=== PATIENT | female | born 1935 | race Caucasian/White ===

== ENCOUNTER 2016-12-22 12:06 | Emergency (ER) | payer MEDICARE ==
[2016-12-22] MEDS ORDERED: NORCO 5/325 MG PO ONE (12:26)
[2016-12-22] MEDS ORDERED: ZOFRAN ODT 4 MG PO ONE (12:26)
[2016-12-22] MEDS ORDERED: Zofran 4 MG/2 ML VIAL IV ONE (12:28)
[2016-12-22] MEDS ORDERED: SUBLIMAZE 100 MCG/2 ML IV ONE ×2 (12:28→13:38)
[2016-12-22] MEDS ORDERED: Zofran 4 MG/2 ML VIAL ONE (12:31)
[2016-12-22] MEDS ORDERED: SUBLIMAZE 100 MCG/2 ML ONE ×2 (12:32→13:52)
--- NOTE | 2016-12-22 12:33 | ERPHSYRPT ---
- History of Present Illness Time Seen by Provider: 12/22/16 12:13 Source: patient, EMS Patient Subjective Stated Complaint: PT REPORTS FALLING IN HOLE IN YARD-REPORTS PAIN TO RIGHT UPPER ARM-INCREASES WITH MOVEMENT-DENIES NUMBNESS OR TINLGING Triage Nursing Assessment: RADIAL PULSE REGULAR ET STRONG-CAP REFILL 3 SEC-RESP NONLAOBRED Physician History: CC: fall Hx: 81 y/o patient of Dr Martínez fell in her yard after walking around planning the spring. She got her foot caught causing the fall. She has pain in the right upper arm. No LOC. No hx of blood thinners. No neck or back pain. No N/T/W. No chest or abd pain. She declined pain meds in EMS. Was placed in sling and swathe. Pain moderate but worse with movement. Occurred: just prior to arrival Reason for Fall: tripped Loss of Consciousness: no loss of consciousness Allergies/Adverse Reactions: enoxaparin sodium [From Lovenox] Allergy (Severe, Verified 12/22/16 12:07) Hives swelling and hives banana Allergy (Intermediate, Verified 12/22/16 12:07) Nausea atenolol [From Tenormin] Allergy (Verified 12/22/16 12:07) Home Medications: Allopurinol 100 mg PO HS 02/15/15 [History] Aspirin 81 mg PO UD 02/15/15 [History] Docusate Sodium 100 mg PO DAILY 02/15/15 [History] Ezetimibe 10 mg [Zetia 10 MG] 10 mg PO EVENING MEAL 02/15/15 [History] Hydrochlorothiazide 12.5 mg PO DAILY 02/15/15 [History] Lisinopril 20 mg PO DAILY 02/15/15 [History] Metformin HCl 500 mg [Glucophage 500 MG] 500 mg PO BID 02/15/15 [History] Metoprolol Tartrate 25 mg PO BID 02/15/15 [History] Multivitamin [Multivitamins] 1 tab PO DAILY 02/15/15 [History] Pravastatin Sodium [Pravachol] 80 mg PO HS 02/15/15 [History] Phoenix-3 Fatty Acids/Fish Oil [Phoenix-3 1,000 mg Softgel] 1 each PO QID 07/25/16 [ History] Hx Tetanus, Diphtheria Vaccination/Date Given: No Hx Influenza Vaccination/Date Given: No Hx Pneumococcal Vaccination/Date Given: Yes Immunizations Up to Date: Yes - Review of Systems Constitutional: No Symptoms Eyes: No Vision Changes Ears, Nose, & Throat: No Symptoms Respiratory: No Dyspnea Cardiac: No Chest Pain Abdominal/Gastrointestinal: No Abdominal Pain, No Nausea, No Vomiting Musculoskeletal: Fall, Joint Pain (right upper arm), No Back Pain, No Neck Pain Skin: No Rash Neurological: No Focal Weakness, No Headache, No Parasthesia All Other Systems: Reviewed and Negative - Past Medical History Pertinent Past Medical History: Yes Neurological History: Other ENT History: No Pertinent History Cardiac History: High Cholesterol, Hypertension Respiratory History: No Pertinent History Endocrine Medical History: Diabetes Type II Musculoskeletal History: Osteoarthritis GI Medical History: Hemorrhoids History: No Pertinent History Psycho-Social History: No Pertinent History Female Reproductive Disorders: No Pertinent History Other Medical History: [place] Palsy 1980 - Past Surgical History Past Surgical History: Yes Neuro Surgical History: No Pertinent History Cardiac: Cardiac Catheterization Respiratory: No Pertinent History Gastrointestinal: Other Genitourinary: No Pertinent History Musculoskeletal: Orthopedic Surgery Female Surgical History: No Pertinent History Other Surgical History: Bilateral Knee replacement. Arthritis in hands, and elbows - Social History Smoking Status: Never smoker Exposure to second hand smoke: No Drug Use: none Patient Lives Alone: No - Nursing Vital Signs Nursing Vital Signs: Initial Vital Signs Temperature 97.4 F Temperature Source Oral Pulse Rate 60 Respiratory Rate 20 Blood Pressure [Left Arm] 159/99 Pain Intensity 5 - Rodrigo Coma Score Best Eye Response (Rodrigo): (4) open spontaneously Best Verbal Response (Rodrigo): (5) oriented Best Motor Response ([place]): (6) obeys commands Rodrigo Total: 15 - Physical Exam General Appearance: alert Head Injury: no evidence of injury Eye Exam: PERRL/EOMI ENT Exam: airway nml Neck Exam: supple, No focal neuro deficit, No mid-line tenderness Respiratory/Chest Exam: normal breath sounds, No chest tenderness Cardiovascular Exam: regular rate/rhythm Gastrointestinal Exam: soft, No tenderness, No distention Back Exam: normal inspection, No vertebral tenderness Extremity Exam: normal inspection, tenderness (mid right humerus with crepitus suggesting fracture. No shoulder, elbow, wrist, or hand tenderness. ) Neurologic Exam: alert, oriented x 3, cooperative, mine inspector II-XII nml as tested, sensation nml, No motor deficits Skin Exam: warm, dry, No rash SpO2 Interpretation: normal SpO2: 95 Oxygen Delivery: Room Air - Course Nursing assessment & vital signs reviewed: Yes - Radiology Exams right humerus X-ray Interpretation: Teleradiologist Report (prox humerus fx comminuted) Ordered Tests: Active Orders 24 hr Category Date Time Status Cold Application STAT Care 12/22/16 12:25 Active IV Insertion STAT Care 12/22/16 12:28 Active NPO (ED) STAT Care 12/22/16 12:26 Active Sling Application STAT Care 12/22/16 12:25 Active HUMERUS Stat Exams 12/22/16 12:25 Completed Medication Summary Discontinued Medications Generic Name Dose Route Start Last Admin Trade Name Freq PRN Reason Stop Dose Admin Acetaminophen/Hydrocodone Bitart 1 tab 12/22/16 12:26 12/22/16 12:39 [place] 5/325 Mg PO 12/22/16 12:27 Not Given STAT ONE Fentanyl Citrate 25 mcg 12/22/16 12:28 12/22/16 12:35 Sublimaze 100 Mcg/2 Ml IV 12/22/16 12:29 25 mcg STAT ONE Administration Fentanyl Citrate Confirm 12/22/16 12:32 Sublimaze 100 Mcg/2 Ml Administered 12/22/16 12:33 Dose 100 mcg .ROUTE .STK-MED ONE Ondansetron HCl 4 mg 12/22/16 12:26 12/22/16 12:39 Zofran Odt 4 Mg PO 12/22/16 12:27 Not Given STAT ONE Ondansetron HCl 4 mg 12/22/16 12:28 12/22/16 12:35 Zofran 4 Mg/2 Ml Vial IV 12/22/16 12:29 4 mg STAT ONE Administration Ondansetron HCl Confirm 12/22/16 12:31 Zofran 4 Mg/2 Ml Vial Administered 12/22/16 12:32 Dose 4 mg .ROUTE .STK-MED ONE - Progress Progress Note: 12/22/16 13:26 Explained fx to pt and brother. She has seen Dr Abrams in the past and requests [facility]. Called. Appt made to see Dr Fuentes 9AM Sunday. Will release with sling and instr. Counseled pt/family regarding: diagnosis, need for follow-up, rad results - Departure Time of Disposition: 13:27 Departure Disposition: Home Clinical Impression: Fracture, humerus, head Condition: Stable Critical Care Time: No Referrals: MAKENZIE FUENETS [NON-STAFF PHY W/O PRIVILEGES] - Instructions: Prevent Falls, Shoulder Fracture Additional Instructions: Ice packs off and on. Stay with family. Use right arm sling. Rx norco for pain- try half tablet every 4-6 hours as needed. Rx zofran if needed for nausea. See Dr Fuentes at 9AM Sunday. Take xray disk with you. Prescriptions: Hydrocodone Bit/Acetaminophen [[place] 5-325 Tablet] 1 each PO Q6H PRN PRN #20 tablet PRN Reason: Pain Ondansetron [Zofran Odt] 4 mg PO Q6HPRN PRN #10 tab.rapdis PRN Reason: Nausea/Vomiting
[2016-12-22 13:15] VITALS: BP 159/99; PULSE 60
--- NOTE | 2016-12-22 13:17 | XRAY ---
Indication: Pain following fall. Comparison: None 2 views of the right humerus demonstrates osteopenia with acute displaced comminuted humeral head fracture. No other bony, articular, or soft tissue abnormalities.
[2016-12-22 13:31] VITALS: O2SAT 95
== END 2016-12-22 14:29 | disposition home or self-care (01) ==
LOC: ED 12:06
DX: S42.291A Other displaced fracture of upper end of right humerus, initial encounter for closed fracture (principal); W01.0XXA Fall on same level from slipping, tripping and stumbling without subsequent striking against object, initial encounter; M79.621 Pain in right upper arm
CPT/HCPCS: 36000; 73060; 96374; 96375; 99284; J2405; J3010

== ENCOUNTER 2019-05-14 13:29 | Day surgery (SDC) | payer MEDICARE ==
[2019-05-14] MEDS ORDERED: Xylocaine 1% Vial 30 ML PF IJ ONE (13:30)
[2019-05-14] MEDS ORDERED: Depo-Medrol 40 MG/ML IM ONE (13:30)
[2019-05-14] MEDS ORDERED: Sodium Chloride 0.9(Preservative Free) 10 ML IJ ONE (13:30)
--- NOTE | 2019-05-14 16:23 | XRAY ---
Indication: Lumbar SHONDA. Intraoperative fluoroscopy was provided for 14 seconds. 2 digital spot images submitted for interpretation demonstrates midline needle tip projecting just posterior to the lumbosacral junction interspace. Small amount of contrast injected for needle tip placement. Correlate with intraoperative findings/report.
--- NOTE | 2019-05-14 16:42 | XRAY ---
14 seconds fluoroscopy time in surgery for lumbar SHONDA.
== END 2019-05-14 15:40 | disposition home or self-care (01) ==
LOC: SDC-PAIN 13:29
PROVIDERS: ATTEND Psychiatry & Neurology Pain Medicine
DX: M54.16 Radiculopathy, lumbar region (principal); E11.9 Type 2 diabetes mellitus without complications; I10 Essential (primary) hypertension; Z79.899 Other long term (current) drug therapy
CPT/HCPCS: 72100; 77003; J1030; J2001

== ENCOUNTER 2019-07-02 14:23 | Day surgery (SDC) | payer MEDICARE ==
[2019-07-02] MEDS ORDERED: Marcaine 0.5% SDV 10 ML IJ ONE (14:24)
[2019-07-02] MEDS ORDERED: Depo-Medrol 40 MG/ML IM ONE (14:24)
[2019-07-02] MEDS ORDERED: Xylocaine 1% Vial 30 ML PF IJ ONE (14:24)
--- NOTE | 2019-07-02 16:03 | XRAY ---
Indication: Right hip injection. Intraoperative fluoroscopy was provided for 40 seconds. Single digital spot image submitted for interpretation demonstrates needle tip just lateral to the right femur neck. Small amount of contrast injected for needle tip placement. Correlate with intraoperative findings/report.
--- NOTE | 2019-07-02 16:08 | XRAY ---
40 seconds fluoroscopy time in surgery for right intra-articular hip injection.
== END 2019-07-02 15:20 | disposition home or self-care (01) ==
LOC: SDC-PAIN 14:23
PROVIDERS: ATTEND Psychiatry & Neurology Pain Medicine
DX: M16.11 Unilateral primary osteoarthritis, right hip (principal); E11.9 Type 2 diabetes mellitus without complications; I10 Essential (primary) hypertension; Z79.899 Other long term (current) drug therapy
CPT/HCPCS: 20610; 73501; 77002; 82962; J1030; J2001; Q9966

== ENCOUNTER 2020-09-22 14:08 | Day surgery (SDC) | payer MEDICARE ==
[2020-09-22] MEDS ORDERED: Depo-Medrol 40 MG/ML IM ONE (14:09)
[2020-09-22] MEDS ORDERED: BUPIVACAINE 0.5% VIAL IJ ONE (14:09)
[2020-09-22] MEDS ORDERED: Xylocaine 1% Vial 30 ML PF IJ ONE (14:09)
--- NOTE | 2020-09-22 18:22 | XRAY ---
59 seconds of fluoroscopy was used in surgery for a right intra-articular hip injection.
--- NOTE | 2020-09-22 18:30 | XRAY ---
Indication: Right hip injection. Intraoperative fluoroscopy was provided for 59 seconds. 2 digital spot images submitted for interpretation demonstrates needle tip projecting just lateral to the right femur head. Small amount of contrast injected for needle tip placement. Correlate with intraoperative findings/report.
== END 2020-09-22 17:40 | disposition home or self-care (01) ==
LOC: SDC-PAIN 14:08
PROVIDERS: ATTEND Psychiatry & Neurology Pain Medicine
DX: M16.11 Unilateral primary osteoarthritis, right hip (principal); E11.9 Type 2 diabetes mellitus without complications; I10 Essential (primary) hypertension; Z79.899 Other long term (current) drug therapy
CPT/HCPCS: 73501; 77002; 82947; J1030; J2001

== ENCOUNTER 2022-11-15 08:39 | Day surgery (SDC) | payer MEDICARE ==
[2022-11-15] MEDS ORDERED: BUPIVACAINE 0.5% VIAL IJ ONE (08:40)
[2022-11-15] MEDS ORDERED: LIDOCAINE HCL 1% 50 MG/5 ML VL PF IJ ONE ×2 (08:40)
[2022-11-15] MEDS ORDERED: Depo-Medrol 40 MG/ML IM ONE (08:40)
[2022-11-15] MEDS ORDERED: DIPRIVAN 200 MG/20 ML IV ONE (10:11)
--- NOTE | 2022-11-15 12:46 | XRAY ---
Indication: Right hip injection. Intraoperative fluoroscopy provided for 1 minute. Single digital spot image submitted for interpretation demonstrates needle tip lateral to the right femur neck. Small amount of contrast injected for needle tip placement. Correlate with intraoperative findings/report.
--- NOTE | 2022-11-15 12:58 | XRAY ---
One minute of fluoroscopy was used in surgery for a right intra-articular hip injection.
[2022-11-15] MEDS ORDERED: Lactated Ringers 1,000 ML IV ONE (13:53)
== END 2022-11-15 10:43 | disposition home or self-care (01) ==
LOC: SDC-PAIN 08:39
PROVIDERS: ATTEND Psychiatry & Neurology Pain Medicine
DX: M16.11 Unilateral primary osteoarthritis, right hip (principal); E11.9 Type 2 diabetes mellitus without complications; Z79.899 Other long term (current) drug therapy
CPT/HCPCS: 20610; 73501; 77002; 82947; J1030; J2001; J2704; Q9966

== ENCOUNTER 2023-11-07 07:01 | Day surgery (SDC) | payer MEDICARE ==
[2023-11-07] MEDS ORDERED: Decadron 4 MG INJ IV ONE (07:02)
[2023-11-07] MEDS ORDERED: XYLOCAINE-MPF 1% 5ML SDV IJ ONE (07:02)
--- NOTE | 2023-11-07 10:47 | XRAY ---
Indication: Right piriformis injection. Intraoperative fluoroscopy provided for 44 seconds. 2 digital spot image submitted for interpretation demonstrates posterior needle tip projecting over the expected right piriformis. Small amount of contrast injected for needle tip placement. Correlate with intraoperative findings/report.
--- NOTE | 2023-11-07 10:53 | XRAY ---
44 seconds of fluoroscopy was used in surgery for a right piriformis injection.
[2023-11-07] MEDS ORDERED: Lactated Ringers 1,000 ML IV ONE (11:50)
== END 2023-11-07 09:15 | disposition home or self-care (01) ==
LOC: SDC-PAIN 07:01
PROVIDERS: ATTEND Psychiatry & Neurology Pain Medicine
DX: M79.18 Myalgia, other site (principal); E11.9 Type 2 diabetes mellitus without complications
CPT/HCPCS: 20552; 72170; 77002; 82947; 93005; J1100; Q9966

== ENCOUNTER 2023-12-12 07:22 | Day surgery (SDC) | payer MEDICARE ==
[2023-12-12] MEDS ORDERED: Depo-Medrol 40 MG/ML IM ONE (07:23)
[2023-12-12] MEDS ORDERED: LIDOCAINE HCL 2% 100 MG/5 ML IJ ONE (07:23)
[2023-12-12] MEDS ORDERED: DIPRIVAN 200 MG/20 ML IV ONE ×2 (09:01→09:14)
--- NOTE | 2023-12-12 10:13 | XRAY ---
Indication: Bilateral L4-S1 MBB. Intraoperative fluoroscopy provided for 12 seconds. Single digital spot image submitted for interpretation demonstrates posterior needle tips projecting over the expected left and right L4-S1 nerve roots. Correlate with intraoperative findings/report.
--- NOTE | 2023-12-12 10:21 | XRAY ---
12 seconds of fluoroscopy was used in surgery for a bilateral L4-S1 MBB.
[2023-12-12] MEDS ORDERED: Lactated Ringers 1,000 ML IV ONE (11:40)
== END 2023-12-12 09:46 | disposition home or self-care (01) ==
LOC: SDC-PAIN 07:22
PROVIDERS: ATTEND Psychiatry & Neurology Pain Medicine
DX: M47.816 Spondylosis without myelopathy or radiculopathy, lumbar region (principal); E11.9 Type 2 diabetes mellitus without complications
CPT/HCPCS: 64493; 64494; 72020; 77002; 82947; J1010; J2704; J1030

== ENCOUNTER 2025-06-24 09:20 | Day surgery (SDC) | payer MEDICARE ==
[2025-06-24] MEDS ORDERED: Sodium Chloride 0.9(Preservative Free) 10 ML IJ ONE (09:21)
[2025-06-24] MEDS ORDERED: Lactated Ringers 1,000 ML IV ONE (09:30)
[2025-06-24] MEDS ORDERED: propofoL IV ONE (11:26)
--- NOTE | 2025-06-24 13:23 | XRAY ---
Indication: Right L4-S1 transforaminal SHONDA. Intraoperative fluoroscopy provided for 30 seconds. 5 digital spot image submitted for interpretation demonstrates posterior needle tips projecting over expected right L4 and L5 nerve roots. Small amount of contrast injected for needle tip placement. Correlate with intraoperative findings/report.
--- NOTE | 2025-06-24 13:54 | XRAY ---
30 seconds of fluoroscopy were used in surgery for a right L4-S1 transforaminal SHONDA.
== END 2025-06-24 12:00 | disposition home or self-care (01) ==
LOC: SDC-PAIN 09:20
PROVIDERS: ATTEND Psychiatry & Neurology Pain Medicine
DX: M54.16 Radiculopathy, lumbar region (principal); E11.9 Type 2 diabetes mellitus without complications